=== PATIENT | male | born 2000 | race Caucasian/White ===

== ENCOUNTER 2021-01-22 03:43 | Emergency (ER) | payer MEDICAID, OTHER ==
[~2021-01-22] VITALS: Ht 170.2 cm; Wt 68.0 kg
[2021-01-22 05:15] VITALS: BP 137/86
[2021-01-22] MEDS ORDERED: methylPREDNISolone SOD SUCC 125 MG/2 ML VL IM ONE (05:15)
[2021-01-22] MEDS ORDERED: KETOROLAC TROMETH 60MG/2ML VIAL IM ONE (05:15)
== END 2021-01-22 06:26 | disposition home or self-care (01) ==
LOC: ER 03:43
DX: S43.491A Other sprain of right shoulder joint, initial encounter (principal); M62.838 Other muscle spasm; W22.8XXA Striking against or struck by other objects, initial encounter; Y93.89 Activity, other specified; Y92.89 Other specified places as the place of occurrence of the external cause; Y99.8 Other external cause status
CPT/HCPCS: 73030; 96372; 99284; J1885; J2930